=== PATIENT | female | born 1960 | race Caucasian/White ===

== ENCOUNTER 2022-12-31 08:31 | Day surgery (SDC) | payer OTHER ==
[~2022-12-31] VITALS: Ht 157.5 cm; Wt 81.8 kg
[~2022-12-31 08:31] MED LIST: LISI5TAB21 PO; METF-1211 PO; SODIUM CHLORIDE 0.9% 1,000 ML IV ONE; SODIUM CHLORIDE 0.9% 1,000 ML ONE
[2022-12-31] MEDS ORDERED: PROPOFOL 1% 20 ML VIAL IVP ONE (08:32)
[2022-12-31] MEDS ORDERED: LIDOCAINE/PF 2% 5 ML VIAL CAUDAL ONE (08:32)
[2022-12-31 09:06] LABS: COVID AG,FIA SOURCE NASAL SWAB
[2022-12-31] MEDS ORDERED: OXYGEN THERAPY IH SCH (10:15)
== END 2022-12-31 12:16 | disposition home or self-care (01) ==
LOC: SURGERY 08:31
PROVIDERS: ATTEND Specialist
DX: K31.89 Other diseases of stomach and duodenum (principal); Z20.822 Contact with and (suspected) exposure to COVID-19; Z98.890 Other specified postprocedural states; I10 Essential (primary) hypertension; Z79.899 Other long term (current) drug therapy
CPT/HCPCS: 43245; 87426; C9803; J2704; J3490; J7030